=== PATIENT | female | born 1980 | race Caucasian/White ===

== ENCOUNTER 2024-01-03 12:52 | Emergency (ER) | payer BC, SELFPAY ==
[2024-01-03 13:00] VITALS: BP 126/83
--- NOTE | 2024-01-03 14:01 | ED.GENMED ---
History of Present Illness
General
Chief Complaint: Musculo-Skeletal Complaint
Source: patient
Time Seen by Provider: 01/03/24 13:32
Travel History
Have you had any contact with someone who has COVID-19?: No
Do you have any symptoms of coronavirus? Fever > 100 degrees, chills, cough, shortness of breath, sore throat, loss of taste or smell, muscle aches, or headache?: No
History of Present Illness
History of Present Illness:
43-year-old female with no significant past medical history presenting emergency department for evaluation of left knee pain that began yesterday after she slipped in her garage and fell downward on her left knee striking just inferior to the
patella on the cement ground. Patient states since that time she has developed pain in the posterior portion of her knee that when attempting to ambulate radiates down her gastrocnemius region and up into her thigh area. Patient tried elevating
the leg and icing but without much relief. She came in today to have the area further evaluated. No other injuries were sustained
Past History
Past History
ED Past Medical History: Psychiatric (anxiety ), Other (chronic neck and back pain OA) and Other (Concussion, ovarian cyst)
ED Past Surgical History: Orthopedic (c spine injection, cervical nerve ablation) and Other (liposuction and breast augmentation )
Social History
Tobacco: Former smoker
Alcohol: Occasional
Drug: None
Personal: Partner
Living: with family
Employment: Employed
Family History
Family History: Other (n/c)
Review of Systems
Review of Systems
All Other Systems: ROS reviewed and negative except as documented in HPI and ROS
Phy Exam
Physical Exam
Physical Exam:
GENERAL: Alert , in no apparent distress
EYE: conjunctiva clear
Head: Normocephalic atraumatic
NECK: Supple,
ENT: mmm.
LUNGS: no acute respiratory distress
NEUROLOGICAL: Alert and oriented
SKIN: Warm and dry, skin intact.
MUSCULOSKELETAL: Left knee: No obvious deformity, erythema, edema, ecchymosis. There is a small abrasion to the inferior surface of the patella. Range of motion limited secondary to pain. There is tenderness posterior within the popliteal fossa.
No tenderness over the gastrocnemius. No tenderness over the thigh or hip. Extremity is otherwise neurovascularly intact.
PSYCH: Normal and appropriate interaction.
Scores
Heart Failure Risk
Heart Failure Risk Score: Not Applicable
Heart Score for Chest Pain Patients
STEMI patient?: Not applicable
Withdrawal Assessment of Alcohol
Withdrawal Assessment Completed?: Not applicable
Course
Orders/Labs/Results
Orders:
Orders
01/03/24 13:02
Knee, Left 4 or More Views [CR Knee - Left 4 Or More View*] Urgent
Comment:
Reason For Exam: fall
01/03/24 14:00
Knee Immobilizer Left-Treatmen ONCE
Vital Signs
Initial and Last Documented VS:
Initial Vital Signs
Temp Pulse Resp BP Pulse Ox
98 F 91 16 126/83 98
01/03/24 13:00 01/03/24 13:00 01/03/24 13:00 01/03/24 13:00 01/03/24 13:00
Last Documented Vital Signs
Temp Pulse Resp BP Pulse Ox
98 F 91 16 126/83 98
01/03/24 13:00 01/03/24 13:00 01/03/24 13:00 01/03/24 13:00 01/03/24 13:00
MDM/Problems Addressed
Differential Diagnosis Includes:
Contusion, sprain, ligamentous injury, meniscal injury, less concern for fracture
MDM/Problems Addressed:
43-year-old female presenting emergency department for evaluation of left knee injury following a slip and fall yesterday. Tenderness is mostly posterior. X-ray was ordered from triage. No fractures seen. No joint effusion appreciated. Will
treat with a knee immobilizer for support. NSAIDs/Tylenol as needed for pain. RICE recommendations discussed. Patient has an orthopedic physician that she will follow-up with.
*Radiology
Radiology exam reviewed: preliminary read by ED provider (No fracture)
*Pulse Oximetry
Patient hypoxic: no
*Critical Care Note
Total Time (30-74mins, 75-104mins- exclusive of procedures): Not Applicable
ED Attending Note
-
Portions of this chart may have been created with voice recognition software.� Occasional wrong word or��sound alike� substitutions may have occurred due to the inherent limitations of voice recognition software.
Discharge Plan
Departure
Patient Disposition: Home (Routine Discharge)
Date of Disposition: 01/03/24
Time of Disposition: 14:01
Patient with high blood pressure during this ER visit?: No
Discharge Problem:
Left knee pain
Instructions: Knee Pain (DC)
Prescriptions:
No Action
docusate sodium [Colace] 100 mg capsule
100 mg PO BID Qty: 20 0RF
Interventions
Interventions:
*Risk Screen - Suicide Last Done: 01/03/24 13:00
*General Assessment Last Done: 01/03/24 13:00
*Neglect/Abuse Screening Last Done: 01/03/24 13:00
ED-Musculoskeletal Assessment Last Done: 01/03/24 14:05
== END 2024-01-03 14:24 | disposition home or self-care (01) ==
LOC: EMR 12:52
PROVIDERS: EMERGENCY PHYSICIAN Emergency Medicine; FAMILY PHYSICIAN Family Medicine
DX: M25.562 Pain in left knee (principal); S80.212A Abrasion, left knee, initial encounter; W01.0XXA Fall on same level from slipping, tripping and stumbling without subsequent striking against object, initial encounter; Y92.008 Other place in unspecified non-institutional (private) residence as the place of occurrence of the external cause; F41.9 Anxiety disorder, unspecified; M19.90 Unspecified osteoarthritis, unspecified site; Z87.820 Personal history of traumatic brain injury; Z87.891 Personal history of nicotine dependence; Z88.5 Allergy status to narcotic agent
CPT/HCPCS: 99283; 29505; 73564

== ENCOUNTER → 2024-07-11 15:03 | Outpatient (REF) | payer BC, SELFPAY | LOC: HWRAD 15:03 | PROVIDERS: ATTENDING PHYSICIAN Nurse Practitioner Family; FAMILY PHYSICIAN Family Medicine | DX: N93.9 Abnormal uterine and vaginal bleeding, unspecified (principal) | CPT/HCPCS: 76830; 76856 ==

== ENCOUNTER → 2024-09-08 17:59 | Outpatient (REF) | payer BC, SELFPAY | LOC: MRI 3T 17:59 | PROVIDERS: ATTENDING PHYSICIAN Physician Assistant; FAMILY PHYSICIAN Family Medicine | DX: R07.81 Pleurodynia (principal); S29.019A Strain of muscle and tendon of unspecified wall of thorax, initial encounter | CPT/HCPCS: 74181 ==

== ENCOUNTER → 2025-02-01 15:26 | Outpatient (REF) | payer BC, SELFPAY | LOC: MRI 3T 15:26 | PROVIDERS: ATTENDING PHYSICIAN Physician Assistant; FAMILY PHYSICIAN Family Medicine | DX: S29.019A Strain of muscle and tendon of unspecified wall of thorax, initial encounter (principal); M54.12 Radiculopathy, cervical region | CPT/HCPCS: 72141; 72146 ==

== ENCOUNTER 2025-03-09 18:22 | Emergency (ER) | payer BC, SELFPAY ==
[2025-03-09 18:24] VITALS: BP 129/89
[2025-03-09 18:46] LABS: % Basophils 0.7 % (0-2); % Eosinophils 2.1 % (0-6); % Immature Granulocytes 0.2 % (0-0.5); % Lymphocytes 39.3 % (20.5-51.1); % Monocytes 7.7 % (1.7-9.3); Absolute Basophils 0.1 10^3/uL (0-0.2); Absolute Eosinophils 0.2 10^3/uL (0-0.7); Absolute Lymphocytes 3.4 10^3/uL (1.2-3.4); Absolute Monocytes 0.7 10^3/uL (0.1-0.6); Absolute Neutrophils 4.4 10^3/uL (1.4-6.5); Hematocrit 41.7 % (37.0-47.0); Hemoglobin 14.3 g/dL (12.0-16.0); Mean Corp Hgb Conc. 34.3 g/dL (33.0-37.0); Mean Corpuscular Hgb 28.5 pg (27.0-31.0); Mean Corpuscular Volume 83.2 fL (81.0-99.0); Mean Platelet Volume 9.4 fL (7.4-10.4); Nucleated Red Blood Cells % 0 %; Platelet Count 338 10^3/uL (130-400); Red Blood Cell Count 5.01 10^6/uL (4.20-5.40); Red Cell Dist. Width 12.9 % (11.5-14.5); White Blood Cell Count 8.7 10^3/uL (4.8-10.8)
[2025-03-09 19:03] LABS: ALT (SGPT) 35 U/L (0-35); AST (SGOT) 29 U/L (14-36); Alkaline Phosphatase 46 U/L (38-126); Blood Urea Nitrogen 16 mg/dl (7-17); Calcium 9.9 mg/dl (8.4-10.2); Carbon Dioxide 25 mmol/L (22-30); Chloride 105 mmol/L (98-107); Glucose 90 mg/dl (70-99); Potassium 4.2 mmol/L (3.5-5.1); Sodium 138 mmol/L (135-145); Total Bilirubin 0.7 mg/dl (0.2-1.3); Total Protein 8.6 g/dl (6.3-8.2); eGFR > 60.00
[2025-03-09 19:10] LABS: Troponin I < 0.012 ng/ml
[2025-03-09 20:00] VITALS: BP 102/78
[2025-03-09 20:04] VITALS: BMI 25.0
[2025-03-09 20:16] LABS: HCG, Serum Qualitative Screen Negative
[2025-03-09] MEDS: PEN VK 500 MG PO (20:31)
--- NOTE | 2025-03-09 20:39 | ED.MUSCINJ ---
HPI-Injury
General
Chief Complaint: Musculo-Skeletal Complaint
Source: patient
Exam Limitations: none
Time Seen by Provider: 03/09/25 20:07
History of Present Illness-Injury
Is this injury a work related problem?: No
Is pt an associate of [facility]/[place]?: No
Initial Injury comments:
Patient to ED with left lower jaw pain that radiates to left neck ant shoulder Symptoms started yesteday. Jaw iis painful to touch. No visble swelling. Brought self to ED for eval Denie fever/chills, recent illness. No history of trauma. No
cp/pressure, SOB
Past History
Past History
ED Past Medical History: Psychiatric (anxiety ), Other (chronic neck and back pain OA) and Other (Concussion, ovarian cyst)
ED Past Surgical History: Orthopedic (c spine injection, cervical nerve ablation) and Other (liposuction and breast augmentation )
Social History
Tobacco: Former smoker
Alcohol: Occasional
Drug: None
Personal: Partner
Living: with family
Employment: Employed
Family History
Family History: Other (n/c)
Review of Systems
Review of Systems
Allergies reviewed?: Yes
All Other Systems: ROS reviewed and negative except as documented in HPI and ROS
Constitutional: Reports no symptoms
EENT: Reports other (left lower jaw pain radiating to neck and shoulder)
Respiratory: Reports no symptoms
Cardiac: Reports no symptoms
ABD/GI: Reports no symptoms
Musculoskeletal: Reports no symptoms
Skin: Reports no symptoms
Neurological: Reports no symptoms
Psychiatric: Reports no symptoms
Phy Exam
General Physical Exam
General Presentation: well appearing and no apparent distress
General age: appears stated age
General Skin: warm and dry
General Habitus: normal
ENT Exam
ENT Exam: EOMI, TM's normal, neck supple, normocephalic, swallowing well and other (no dental abscess noted)
Cardiovascular Exam
Cardiovascular Exam: regular rate/rhythm
Neurological Exam
Neurological Exam: alert, oriented x3, no motor deficits, no sensory deficits and speech normal
Musculoskeletal Exam
Musculoskeletal Exam: full ROM and neuro vasc intact
Skin Exam
Skin Exam: normal color, warm/dry and no rash
Psychiatric Exam
Psychiatric Exam: normal mood/affect
Injury Course
Orders/Labs/Results
Orders:
Orders
03/09/25 18:28
ECG [Electrocardiogram (*1)] Urgent
Reason for Study: CAD
Other Reason for Exam: Jaw pain, dyspnea
EKG- Treatment ONCE
03/09/25 18:38
Complete Blood Count/With Diff Urgent
Comprehensive Metabolic Panel Urgent
HCG, Serum Qualitative Screen Urgent
Comment: ADDON
Troponin I Urgent
03/09/25 19:45
Add On- LAB Urgent
Tests Added?: hcg qual.
03/09/25 20:22
Penicillin V Potassium [Pen Vk] 500 mg PO NOW STA
Abnormal Lab Results
03/09/25
18:38
Absolute Monos (auto) 0.7 H 10^3/uL
(0.1-0.6)
Total Protein 8.6 H g/dl
(6.3-8.2)
03/09/25 18:38
03/09/25 18:38
ED Attending Note
-
Portions of this chart may have been created with voice recognition software.� Occasional wrong word or��sound alike� substitutions may have occurred due to the inherent limitations of voice recognition software.
Discharge Plan
Departure
Patient Disposition: Home (Routine Discharge)
Date of Disposition: 03/09/25
Time of Disposition: 20:23
Patient with high blood pressure during this ER visit?: No
Condition: Good
Covid-19: Not Applicable
Discharge Problem:
Jaw pain
Instructions: Muscle and Bone Pain (DC)
Prescriptions:
New
penicillin V potassium 500 mg tablet
500 mg PO TID Qty: 15 0RF
No Action
docusate sodium [Colace] 100 mg capsule
100 mg PO BID Qty: 20 0RF
Activity Restrictions/Additional Instructions:
Follow up with your dentist. Return to the emergency department immediately for any changes in/worsening of your symptoms
Interventions
Interventions:
*Risk Screen - Suicide Last Done: 03/09/25 20:04
*General Assessment Last Done: 03/09/25 20:04
*Neglect/Abuse Screening Last Done: 03/09/25 20:04
*ED- Fall Risk Assessment Last Done: 03/09/25 20:04
*ED COVID-19 Vaccine History Last Done: 03/09/25 20:04
*Nursing Disposition Last Done: 03/09/25 20:50
ED-Musculoskeletal Assessment Last Done: 03/09/25 20:04
Discharge Date and Time
Discharge Date/Time: 03/09/25 20:50
Print Language: [id number]
== END 2025-03-09 20:50 | disposition home or self-care (01) ==
LOC: EMR 18:22
PROVIDERS: Emergency Medicine; EMERGENCY PHYSICIAN Emergency Medicine
DX: R68.84 Jaw pain (principal); M54.2 Cervicalgia; M25.512 Pain in left shoulder; F41.9 Anxiety disorder, unspecified; M19.90 Unspecified osteoarthritis, unspecified site; M54.9 Dorsalgia, unspecified; Z87.820 Personal history of traumatic brain injury; Z87.891 Personal history of nicotine dependence; G89.29 Other chronic pain; Z88.5 Allergy status to narcotic agent
CPT/HCPCS: 99283; 80053; 84484; 84703; 85025; 93005